=== PATIENT | female | born 1995 | race American Indian/Alaskan Native ===

== ENCOUNTER 2016-08-14 09:32 | Outpatient (CLI) | payer MEDICAID ==
--- NOTE | 2016-08-14 10:48 | Ultrasound Report ---
ULTRASOUND PELVIS COMPLETE - TRANSABDOMINAL AND TRANSVAGINAL: INDICATION: Ovarian cyst. COMPARISON: 03/18/2016. FINDINGS: Transabdominal and transvaginal pelvic sonography performed in this patient with LMP of 07/19/2016 demonstrates a homogenous, 7.5 x 4.4 x 5.1 cm anteverted uterus. Presumed empty gestational sac previously along the endometrium superiorly now not identified in that location. Currently, the endometrial thickness in similar location is approximately 0.8 cm, endovaginal imaging 8. An elongated 1.1 x 0.3 cm cystic focus now seen along the mid to lower endometrium, endovaginal image 10. No pelvic free fluid. Physiologic, 4.1 x 1.6 x 2.7 cm right ovary with a few small follicles. Left ovary estimated at 4.6 x 3.5 x 3.8 cm, much replaced by a 3.4 x 2.9 x 3.4 cm solid mass, endovaginal image 26, though somewhat heterogeneous with eccentric 1.2 cm hyperechoic focus as well. No hypervascularity however identified. Calcification with shadowing in that region seen previously also now not noted. CONCLUSION: 1. Interval sonographic change in cystic uterine/endometrial focus, now seen along the mid to lower endometrial canal and still remains nonspecific for an endometrial cyst. A /gestational sac also not excluded in this setting. Please correlate clinically and with serum beta-hCG values, as appropriate. 2. Complex/solid left ovarian mass again noted with some interval sonographic change, as described. Dermoid again remains in the differential consideration, amongst others, and may also be correlated with any prior/interval cross-sectional imaging if available or with additional imaging, as warranted. Thank you for the opportunity to participate in this patient's care.
== END 2016-08-14 09:33 | disposition home or self-care (01) ==
LOC: US 09:32
PROVIDERS: ATTEND Obstetrics & Gynecology
DX: N83.299 Other ovarian cyst, unspecified side (principal); N83.8 Other noninflammatory disorders of ovary, fallopian tube and broad ligament; N85.4 Malposition of uterus; N85.8 Other specified noninflammatory disorders of uterus
CPT/HCPCS: 76830; 76856

== ENCOUNTER 2017-03-12 08:34 | Emergency (ER) | payer MEDICAID ==
[2017-03-12 09:00] VITALS: BP 136/83
[2017-03-12] MEDS ORDERED: ZOFRAN ODT PO ONE (10:39)
[2017-03-12] MEDS ORDERED: TYLENOL PO ONE (10:39)
--- NOTE | 2017-03-12 10:54 | Emergency Department Report ---
HPI - General Chief Complaint: Back Pain/Injury Time Seen by Provider: 03/12/17 10:01 - [facility] HPI: Pt is a 21-year-old female who presents to the ED complaining of bilateral lower back pain 3 days. Patient also complains of urinary urgency and frequency. Patient states she noticed some blood in her urine about 2 days ago. Patient admits nausea but no vomiting. Patient denies any injury falls or trauma to that. She denies any allergies and denies taking any current medications. Patient also states she experiences spasms type pain after urinating. He denies fevers/chills/vomiting/abdominal pain/chest pain/shortness of breath/ diarrhea. ED Past Medical Hx - Past Medical History Previous Medical History?: Yes Hx Asthma: Yes Additional medical history: heart murmur - Surgical History Past Surgical History?: No - Social History Smoking Status: Current Every Day Smoker Substance Use Type: Alcohol - Medications Home Medications: Home Medications Medication Instructions Recorded Confirmed Last Taken Type Ciprofloxacin HCl [Ciprofloxacin 500 mg PO Q12HR #10 tab 03/12/17 Unknown Rx TAB] Ibuprofen 800 mg PO Q8H #30 tablet 03/12/17 Unknown Rx Ondansetron [Zofran ODT TAB] 8 mg PO Q8HR #20 tab.rapdis 03/12/17 Unknown Rx Phenazopyridine [Pyridium] 200 mg PO BID #10 tab 03/12/17 Unknown Rx ED Review of Systems ROS: Stated complaint: BACK PAIN Other details as noted in HPI Constitutional: denies: chills, fever Eyes: denies: eye pain, eye discharge, vision change ENT: denies: ear pain, throat pain Respiratory: denies: cough, shortness of breath, wheezing Cardiovascular: denies: chest pain, palpitations Endocrine: no symptoms reported Gastrointestinal: denies: abdominal pain, nausea, vomiting, diarrhea Genitourinary: denies: urgency, dysuria, discharge Musculoskeletal: denies: back pain, joint swelling, arthralgia Skin: denies: rash, lesions Neurological: denies: headache, weakness, paresthesias Psychiatric: denies: anxiety, depression Hematological/Lymphatic: denies: easy bleeding, easy bruising Physical Exam - Physical Exam Vital Signs: Vital Signs 03/12/17 08:55 Temperature 98.3 F Pulse Rate 81 Respiratory 20 Rate Blood Pressure 136/83 O2 Sat by Pulse 100 Oximetry Physical Exam: GENERAL: Alert and oriented x3, no apparent distress, Normal Gait, atraumatic. MOUTH:Mouth is well hydrated and without lesions. Tonsils nonerythematous or swollen, Uvula midline, Tongue not elevated. Mucous membranes are moist. Posterior pharynx clear, no exudate or lesions. Patent airways. NECK: Supple. Non edematous, No lymphadenopathy or thyromegaly. LUNGS: Symetrical with respiration, No wheezing, no rales or crackles, CTAB. HEART: S1, S2 present, regular rate and rhythm without murmur, no rubs, no gallops. Non tender to palpation ABDOMEN: No organomegaly was noted,Positive bowel sounds, soft, and non- distended. . Nontender to palpation on all Quadrants, bilat CVA tenderness. BACK: Full range of motion, no spinal tenderness, nontender to palpation. PSYCHIATRIC: Mood is congruent with affect, denies suicidal or homicidal ideations. SKIN: Warm and dry, No lesions, No ulceration or induration present. ED Course Vital Signs 03/12/17 08:55 Temperature 98.3 F Pulse Rate 81 Respiratory 20 Rate Blood Pressure 136/83 O2 Sat by Pulse 100 Oximetry ED Medical Decision Making - Medical Decision Making 21-year-old female present with urinary tract infection ED course: Patient to go home on antibiotics and pain meds. Discussed the patient and take medications as prescribed Discussed the patient to follow-up with primary care physician. Patient is in no acute distress vital signs are normal. Critical care attestation.: If time is entered above; I have spent that time in minutes in the direct care of this critically ill patient, excluding procedure time. ED Disposition Clinical Impression: UTI (urinary tract infection) Qualifiers: Urinary tract infection type: acute cystitis Hematuria presence: with hematuria Qualified Code(s): N30.01 - Acute cystitis with hematuria Disposition: TO HOME OR SELFCARE Is pt being admited?: No Does the pt Need Aspirin: No Condition: Stable Instructions: Urinary Tract Infection in Women (ED), Acute Pyelonephritis (ED) , Flank Pain (ED) Additional Instructions: Please take your medication as prescribed. Follow-up with the primary care physician. If his symptoms get worse or new symptoms arise please return to ED Prescriptions: Ciprofloxacin HCl [Ciprofloxacin TAB] 500 mg PO Q12HR #10 tab Ibuprofen 800 mg PO Q8H #30 tablet Ondansetron [Zofran ODT TAB] 8 mg PO Q8HR #20 tab.rapdis Phenazopyridine [Pyridium] 200 mg PO BID #10 tab Referrals: PRIMARY CARE, [Primary Care Provider] - 3-5 Days [facility] [Outside] - 3-5 Days [facility] [Outside] - 3-5 Days [facility] [Outside] - 3-5 Days Forms: Work/School Release Form Time of Disposition: 13:51
[2017-03-12 11:54] LABS: Bacteria,Urine 1+ /HPF (Negative); Bilirubin,Urine NEG (Negative); Blood,Urine LG (Negative); Ketones,Urine NEG (Negative); Leukocyte Esterase,Urine SM (Negative); Mucus,Urine FEW /HPF; Nitrite,Urine NEG (Negative); Protein,Urine <15 mg/dL mg/dL (Negative); Urobilinogen,Urine < 2.0 mg/dL (<2.0)
[2017-03-12] MEDS ORDERED: ROCEPHIN IM ONE (13:13)
[2017-03-12] MEDS ORDERED: XYLOCAINE 1% MPF 5 mL INFILTRATI ONE (13:13)
== END 2017-03-12 14:18 | disposition home or self-care (01) ==
LOC: ED 08:34
DX: N30.01 Acute cystitis with hematuria (principal); J45.909 Unspecified asthma, uncomplicated; F17.200 Nicotine dependence, unspecified, uncomplicated
CPT/HCPCS: 81001; 81025; 96372; 99283; J0696; Q0162

== ENCOUNTER 2017-10-14 15:39 | Emergency (ER) | payer MEDICAID ==
[2017-10-14] MEDS ORDERED: MOTRIN PO ONE (16:52)
[2017-10-14] MEDS ORDERED: NORCO 5/325 PO ONE (16:52)
--- NOTE | 2017-10-14 16:56 | Emergency Department Report ---
ED Extremity Problem HPI - General Chief complaint: Extremity Injury, Upper Stated complaint: HAND PAIN Time Seen by Provider: 10/14/17 16:47 Source: patient Mode of arrival: Ambulatory Limitations: No Limitations - History of Present Illness Initial comments: Patient is a 22-year-old female who got angry yesterday and punched a wall. Patient is noted pain at the fourth and fifth metacarpals loss of her knuckle. Patient states a throbbing pain as 8 out of 10 in severity. It hurts worse when she tries to move. Patient denies any other injuries at this time. - Related Data Previous Rx's Medication Instructions Recorded Last Taken Type Ciprofloxacin HCl [Ciprofloxacin 500 mg PO Q12HR #10 tab 03/12/17 Unknown Rx TAB] Ibuprofen 800 mg PO Q8H #30 tablet 03/12/17 Unknown Rx Ondansetron [Zofran ODT TAB] 8 mg PO Q8HR #20 tab.rapdis 03/12/17 Unknown Rx Phenazopyridine [Pyridium] 200 mg PO BID #10 tab 03/12/17 Unknown Rx HYDROcodone/APAP 5-325 [[place] 1 each PO Q6HR PRN #15 tablet 10/14/17 Unknown Rx 5/325] Ibuprofen [Motrin] 600 mg PO Q8H PRN #20 tablet 10/14/17 Unknown Rx Allergies Allergy/AdvReac Type Severity Reaction Status Date / Time No Known Allergies Allergy Verified 10/14/17 15:43 ED Review of Systems ROS: Stated complaint: HAND PAIN Other details as noted in HPI Comment: All other systems reviewed and negative ED Past Medical Hx - Past Medical History Hx Asthma: Yes Additional medical history: heart murmur - Surgical History Past Surgical History?: No - Social History Smoking Status: Current Every Day Smoker Substance Use Type: Alcohol - Medications Home Medications: Home Medications Medication Instructions Recorded Confirmed Last Taken Type Ciprofloxacin HCl [Ciprofloxacin 500 mg PO Q12HR #10 tab 03/12/17 Unknown Rx TAB] Ibuprofen 800 mg PO Q8H #30 tablet 03/12/17 Unknown Rx Ondansetron [Zofran ODT TAB] 8 mg PO Q8HR #20 tab.rapdis 03/12/17 Unknown Rx Phenazopyridine [Pyridium] 200 mg PO BID #10 tab 03/12/17 Unknown Rx HYDROcodone/APAP 5-325 [[place] 1 each PO Q6HR PRN #15 tablet 10/14/17 Unknown Rx 5/325] Ibuprofen [Motrin] 600 mg PO Q8H PRN #20 tablet 10/14/17 Unknown Rx ED Physical Exam - General Limitations: No Limitations General appearance: alert, in no apparent distress - Head Head exam: Present: atraumatic, normocephalic - Eye Eye exam: Present: normal appearance - ENT ENT exam: Present: mucous membranes moist - Neck Neck exam: Present: normal inspection - Respiratory Respiratory exam: Present: normal lung sounds bilaterally - Cardiovascular Cardiovascular Exam: Absent: systolic murmur, diastolic murmur, rubs, gallop - GI/Abdominal GI/Abdominal exam: Present: soft - Extremities Exam Extremities exam: Present: normal inspection, tenderness (patient has tenderness and swelling to the area of the hand on the right overlying the fourth and fifth metacarpal there is loss of the contour of the knuckles.) - Back Exam Back exam: Present: normal inspection - Neurological Exam Neurological exam: Present: alert, oriented X3 - Psychiatric Psychiatric exam: Present: normal affect, normal mood - Skin Skin exam: Present: warm, dry, intact, normal color. Absent: rash ED Course Vital Signs 10/14/17 15:43 Temperature 98.5 F Pulse Rate 84 Respiratory 16 Rate Blood Pressure 125/91 O2 Sat by Pulse 99 Oximetry ED Medical Decision Making - Medical Decision Making Patient was placed in ulnar gutter splint and will be referred to [email or web address] Critical care attestation.: If time is entered above; I have spent that time in minutes in the direct care of this critically ill patient, excluding procedure time. ED Disposition Clinical Impression: Boxers fracture Qualifiers: Encounter type: initial encounter Fracture type: closed Qualified Code(s): S62.339A - Displaced fracture of neck of unspecified metacarpal bone, initial encounter for closed fracture Disposition: - TO HOME OR SELFCARE Is pt being admited?: No Does the pt Need Aspirin: No Condition: Stable Instructions: Boxer Fracture (ED) Referrals: HANK KERN MD [Staff Physician] - 3-5 Days
[2017-10-14 17:19] VITALS: BP 109/80
--- NOTE | 2017-10-14 19:06 | XRay Report ---
FINAL REPORT EXAM: XR HAND 3+V RT HISTORY: injury/RT HAND PAIN COMPARISON: None available. FINDINGS: Three views of the right hand obtained. There is a transverse fracture of the mid 5th metacarpal body with volar angulation of the distal fracture segment. Remaining bony structures are intact. There is expansile lucent lesion within the proximal 1st phalanx measuring 1.7 x 1.1 centimeters. No associated fracture. This may reflect a benign aneurysmal bone cyst or focus of fibrous dysplasia. Joint spaces are preserved. IMPRESSION: Fifth metacarpal fracture. 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 Followup exam in 6 months could be performed to ensure stability.
== END 2017-10-14 17:19 | disposition home or self-care (01) ==
LOC: ED 15:39
DX: S62.396A Other fracture of fifth metacarpal bone, right hand, initial encounter for closed fracture (principal); J45.909 Unspecified asthma, uncomplicated; F17.200 Nicotine dependence, unspecified, uncomplicated; X58.XXXA Exposure to other specified factors, initial encounter; Y93.89 Activity, other specified; Y99.8 Other external cause status; Y92.89 Other specified places as the place of occurrence of the external cause

== ENCOUNTER 2018-10-26 23:04 | Inpatient (IN) | payer OTHER ==
[2018-10-26] MEDS ORDERED: PITOCin/NS 20 UNIT/1000ML DRIP 20,000 MILLIUNITS/1,000 ML BAG IV ONE (23:30)
[2018-10-26] MEDS ORDERED: LACTATED RINGERS 1,000 ML ONE (23:30)
[2018-10-27] MEDS: PITOCin/NS 20 UNIT/1000ML DRIP 20 UNITS/1,000 ML BAG IV SCH ×2 (00:25→02:55)
--- NOTE | 2018-10-27 00:40 | History and Physical Report ---
History of Present Illness Date of examination: 10/27/18 Date of admission: 10/26/18 23:18 Chief complaint: SROM History of present illness: 23y/o @ 39+1 weeks presents in active labor with advanced cervical dilation and SROM. The patient's course was complicated by STD exposure and a left dermoid cyst. GBS negative Past History Past Medical History: no pertinent history Past Surgical History: no surgical history Social history: single - Obstetrical History Expected Date of Delivery: 11/02/18 Actual Gestation: 39 Week(s) 1 Day(s) : 2 Para: 0 Hx # Term Pregnancies: 0 Number of Pregnancies: 0 Spontaneous Abortions: 1 Induced : 0 Number of Living Children: 0 Medications and Allergies Allergies Allergy/AdvReac Type Severity Reaction Status Date / Time No Known Allergies Allergy Verified 10/14/17 15:43 Home Medications Medication Instructions Recorded Confirmed Last Taken Type Ciprofloxacin HCl [Ciprofloxacin 500 mg PO Q12HR #10 tab 03/12/17 Unknown Rx TAB] Ibuprofen 800 mg PO Q8H #30 tablet 03/12/17 Unknown Rx Ondansetron [Zofran ODT TAB] 8 mg PO Q8HR #20 tab.rapdis 03/12/17 Unknown Rx Phenazopyridine [Pyridium] 200 mg PO BID #10 tab 03/12/17 Unknown Rx HYDROcodone/APAP 5-325 [[place] 1 each PO Q6HR PRN #15 tablet 10/14/17 Unknown Rx 5/325] Ibuprofen [Motrin] 600 mg PO Q8H PRN #20 tablet 10/14/17 Unknown Rx Review of Systems All systems: negative Genitourinary: leakage of fluid, pelvic pain, contractions - Vital Signs Vital signs: Vital Signs Pulse BP 83 217/88 10/27/18 00:10 10/27/18 00:10 Temp Pulse Resp BP Pulse Ox 85 94/54 10/27/18 00:27 10/27/18 00:27 - Physical Exam Breasts: Positive: deferred Cardiovascular: Regular rate Lungs: Positive: Clear to auscultation Abdomen: Positive: normal appearance Results All other labs normal. Assessment and Plan - Patient Problems (1) Spontaneous rupture of membranes Current Visit: Yes Status: Acute Plan to address problem: admit to L&D (2) Active labor at term Current Visit: Yes Status: Acute
[2018-10-27] MEDS ORDERED: MINERAL OIL PO PRN (00:45)
[2018-10-27] MEDS ORDERED: XYLOCAINE 2% INFILTRATI ONE (00:45)
--- NOTE | 2018-10-27 00:45 | Procedure Note ---
OB Delivery Note - Delivery Date of Delivery: 10/27/18 Surgeon: SKY EDWARD Estimated blood loss: 100cc - Vaginal Delivery presentation: vertex Delivery position: OA Intrapartum events: none Delivery monitor: external FHT, external uterine Route of delivery: Delivery placenta: spontaneous Delivery cord: nuchal cord, 3 umbilical vessels Episiotomy: none Delivery laceration: none Anesthesia: none Delivery comments: Patient progressed to C/C/+1 and pushed to deliver a liveborn male with apgars of 8/9 and weight 7lbs 4oz. After delivery of the head, a nuchal cord had to be surgically reduced. After delivery of the , the infant was placed on the patient's abdomen. The placenta delivered spontaneously intact with a 3VC. No lacerations were noted. EBL 100ml. - Infant A at 1 minute: 8 at 5 minutes: 9 Infant Gender: Male (weight 7lbs 4oz.)
[2018-10-27] MEDS ORDERED: TUCKS PAD TP PRN (00:48)
[2018-10-27] MEDS ORDERED: PHENERGAN PO PRN (00:48)
[2018-10-27] MEDS ORDERED: DULCOLAX PR PRN (00:48)
[2018-10-27] MEDS ORDERED: ZOFRAN IV PRN (00:48)
[2018-10-27] MEDS ORDERED: BENADRYL PO PRN (00:48)
[2018-10-27] MEDS ORDERED: MILK OF MAGNESIA PO PRN (00:48)
[2018-10-27] MEDS ORDERED: LANSINOH TP PRN (00:48)
[2018-10-27] MEDS ORDERED: PHENERGAN PR PRN (00:48)
[2018-10-27] MEDS ORDERED: TYLENOL PO PRN (00:48)
[2018-10-27] MEDS ORDERED: SODIUM CHLORIDE FLUSH SYRINGE 10 ML IV PRN (01:00)
[2018-10-27] MEDS ORDERED: LACTATED RINGERS 1,000 ML IV SCH (01:00)
[2018-10-27 01:23] LABS: Hematocrit 40.8 % (30.3-42.9); Mean Corpuscular HGB Conc 34 % (30-34); Mean Corpuscular Volume 100 fl (79-97); Platelet Count 146 K/mm3 (140-440); Red Blood Count 4.08 M/mm3 (3.65-5.03)
[2018-10-27] MEDS: IBUPROFEN PO SCH ×4 (02:14→19:04)
--- NOTE | 2018-10-27 12:03 | Progress Note ---
Assessment and Plan - Patient Problems (1) Spontaneous rupture of membranes Current Visit: Yes Status: Acute Plan to address problem: patient doing well discharge once is discharged (2) Active labor at term Current Visit: Yes Status: Acute Subjective - Subjective Date of service: 10/27/18 Interval history: Patient well. Lochia improved. Patient reports: appetite normal, voiding normally, pain well controlled : doing well Objective - Vital Signs Latest vital signs: Vital Signs Temp Pulse Resp BP BP Pulse Ox 10/27/18 07:06 98.1 F 77 18 105/57 10/27/18 06:04 20 10/27/18 04:34 98.1 F 79 20 106/56 96 10/27/18 02:11 80 117/73 10/27/18 01:56 71 112/64 10/27/18 01:41 71 112/64 10/27/18 01:26 72 121/63 10/27/18 01:11 79 113/63 10/27/18 00:56 84 122/68 10/27/18 00:53 98.1 F 18 10/27/18 00:42 75 124/66 10/27/18 00:27 85 94/54 10/27/18 00:10 83 217/88 Intake and Output 10/26/18 10/27/18 10/27/18 22:59 06:59 14:59 Intake Total 792.5 480 Output Total 850 Balance -57.5 480 Intake: IV 312.5 PITOCin/NS 20 UNIT/1000ML 312.5 DRIP 20 units In 1,000 ml @ 125 mls/hr IV DIRECT SANIYA Rx#:[id number] Oral 120 480 Intake, Free Water 360 Output: Urine 850 Void 850 Other: Total, Intake Amount 120 480 Total, Output Amount 350 Weight 68.946 kg Estimated Blood Loss 100 - Exam Abdomen: Present: normal appearance, soft - Labs Labs: Abnormal lab results 10/27/18 Range/Units Unknown WBC 11.8 H (4.5-11.0) K/mm3 MCV 100 H (79-97) fl MCH 34 H (28-32) pg RDW 13.0 L (13.2-15.2) %
--- NOTE | 2018-10-27 12:04 | Discharge Summary ---
Providers - Providers Date of Admission: 10/26/18 23:18 Date of discharge: 10/28/18 Attending physician: SKY EDWARD Primary care physician: SKY EDWARD Hospitalization Reason for admission: active labor Delivery: Discharge diagnosis: IUP at term delivered Hospital course: Patient admitted in active labor. . uneventful Condition at discharge: Good Disposition: DC-01 TO HOME OR SELFCARE - Discharge Diagnoses (1) Spontaneous rupture of membranes Status: Acute (2) Active labor at term Status: Acute Plan - Discharge Medications Prescriptions: Ibuprofen [Motrin] 800 mg PO Q8HR PRN #60 tablet PRN Reason: Pain, Mild (1-3) HYDROcodone/APAP 5-325 [[place] 5/325] 1 each PO Q6HR PRN #20 tablet PRN Reason: Pain - Provider Discharge Summary Activity: no sex for 6 weeks, no heavy lifting 4 weeks, no strenuous exercise Diet: routine Instructions: routine Additional instructions: [] Smoking cessation referral if applicable(refer to patient education folder for contact #) [] Refer to [facility] Booklet Call your doctor immediately for: * Fever > 100.5 * Heavy vaginal bleeding ( >1 pad per hour) * Severe persistent headache * Shortness of breath * Reddened, hot, painful area to leg or breast * schedule visit in 4 weeks - Follow up plan
[2018-10-27 13:37] LABS: Hemoglobin 12.4 gm/dl (10.1-14.3)
[2018-10-27] MEDS: NORCO 5/325 PO PRN (18:40)
[2018-10-28] MEDS: IBUPROFEN PO SCH ×3 (00:30→12:14)
[2018-10-28] MEDS: NORCO 5/325 PO PRN (05:58)
[2018-10-28] MEDS ORDERED: BOOSTRIX IM ONE (06:00)
[2018-10-28 08:56] VITALS: BP 91/51
== END 2018-10-28 16:25 | disposition home or self-care (01) | DRG 775 ==
LOC: TRG 23:04 → LD 23:18 → OB 10-27 03:44
PROVIDERS: ADMIT Obstetrics & Gynecology; ATTEND Obstetrics & Gynecology
PROC: 10E0XZZ Delivery of Products of Conception, External Approach (ICD-10-PCS; principal; 2018-10-27)
DX: O69.1XX0 Labor and delivery complicated by cord around neck, with compression, not applicable or unspecified (principal); Z3A.39 39 weeks gestation of pregnancy; Z37.0 Single live birth; Z79.899 Other long term (current) drug therapy
CPT/HCPCS: 36415; 85014; 85018; 85027; 86592; 86706; 86850; 86900; 86901; 90471; 90715; G0378; A6250; J2590; J7120

== ENCOUNTER 2021-03-07 23:20 | Emergency (ER) | payer SELFPAY ==
[2021-03-08] MEDS ORDERED: MORPHINE 4 MG/1 ML INJ IV ONE (02:27)
[2021-03-08] MEDS ORDERED: LORazepam 2 MG/ML VIAL IV ONE (02:27)
[2021-03-08] MEDS ORDERED: FAMOTIDINE 20 MG/2 ML INJ IV ONE (02:27)
[2021-03-08] MEDS ORDERED: SODIUM CHLORIDE 0.9% 1000 ML 1,000 ML IV ONE (02:27)
[2021-03-08] MEDS ORDERED: ONDANSETRON 4 MG/2 ML INJ IV ONE (02:27)
[2021-03-08 02:49] LABS: Hematocrit 41.8 % (30.3-42.9); Hemoglobin 13.1 gm/dl (10.1-14.3); Mean Corpuscular HGB Conc 32 % (30-34); Mean Corpuscular Volume 96 fl (79-97); Platelet Count 237 K/mm3 (140-440); Red Blood Count 4.35 M/mm3 (3.65-5.03); Red Cell Distribution Width 14.1 % (13.2-15.2)
[2021-03-08 03:08] LABS: Alanine Aminotransferase 13 units/L (7-56); Albumin 4.4 g/dL (3.9-5); Blood Urea Nitrogen 7 mg/dL (7-17); Calcium 9.4 mg/dL (8.4-10.2); Hemolysis Index 11
[2021-03-08 03:19] LABS: BUN/Creatinine Ratio 10
[2021-03-08 03:39] LABS: Total Cells Counted 100
[2021-03-08 03:40] LABS: RBC Morphology Normal
[2021-03-08 05:07] LABS: Bacteria,Urine 1+ /HPF (Negative); Bilirubin,Urine NEG (Negative); Blood,Urine NEG (Negative); Color,Urine Yellow (Yellow); Mucus,Urine 2+ /HPF; Protein,Urine <15 mg/dL mg/dL (Negative)
--- NOTE | 2021-03-08 05:59 | Emergency Department Report ---
ED Female HPI - General Chief complaint: Abdominal Pain Stated complaint: ABD PAIN Source: patient Mode of arrival: Ambulatory Limitations: No Limitations - History of Present Illness Initial comments: Patient is a A1 25-year-old -[place] female with a history of PTSD, asthma, anxiety and depression who presents to the ED with complaint of acute onset persistent suprapubic pain that radiates to the left lower quadrant area with nausea and vomiting for the last 1 week, worse in the last 2 days. Patient states that the pain has been constant and persistent since the onset. Patient also complains of urinary frequency and urgency. Patient states that her LMP was December, and that she was not concerned because she usually has irregular menstrual cycle. Patient denies vaginal bleeding, vaginal discharge, dizziness, syncope, low back pain, dysuria, chest pain, sore throat, diarrhea, dyspareunia, fever, chills, cough or headache. MD Complaint: pelvic pain, other (Nausea and vomiting) -: Sudden, week(s) (1) Location: suprapubic, LLQ Radiation: suprapubic, LLQ Severity: severe Severity scale (0 -10): 8 Quality: cramping, sharp Consistency: constant Improves with: none Worsens with: movement Are you Now?: No (Unknown) Associated Symptoms: denies other symptoms, abdominal pain (Suprapubic pain radiating to the left lower quadrant area), nausea/vomiting. denies: vaginal discharge, vaginal bleeding, fever/chills, headaches, loss of appetite, dysuria, hematuria, rash, seizure, shortness of breath, syncope, weakness - Related Data Sexually active: Yes : 2 Para: 1 A: 1 Home Medications Medication Instructions Recorded Confirmed Last Taken No.144/Folic Acid [[facility] 400 mcg PO BID 10/27/18 10/27/18 10/26/18 Gummies] Previous Rx's Medication Instructions Recorded Last Taken Type HYDROcodone/APAP 5-325 [[place] 1 each PO Q6HR PRN #20 tablet 10/27/18 Unknown Rx 5/325] Ibuprofen [Motrin] 800 mg PO Q8HR PRN #60 tablet 10/27/18 Unknown Rx Acetaminophen [Tylenol] 500 mg PO Q6HR PRN #30 tablet 03/08/21 Unknown Rx Nitrofurantoin Cid[place]/M-Cryst 100 mg PO Q12HR #14 capsule 03/08/21 Unknown Rx [Macrobid CAP] Promethazine [Phenergan] 25 mg PO Q6HR PRN #30 tab 03/08/21 Unknown Rx Allergies Allergy/AdvReac Type Severity Reaction Status Date / Time Penicillins AdvReac Hives Verified 03/08/21 01:35 ED Review of Systems ROS: Stated complaint: ABD PAIN Other details as noted in HPI Constitutional: denies: chills, fever Eyes: denies: eye pain, eye discharge, vision change ENT: denies: ear pain, throat pain Respiratory: denies: cough, shortness of breath, wheezing Cardiovascular: denies: chest pain, palpitations Endocrine: no symptoms reported Gastrointestinal: abdominal pain (Suprapubic pain that radiates to the left lower quadrant area), nausea, vomiting. denies: diarrhea, constipation, hematemesis, hematochezia Genitourinary: urgency, dysuria, frequency. denies: discharge, abnormal menses, dyspareunia Musculoskeletal: denies: back pain, joint swelling, arthralgia Skin: denies: rash, lesions Neurological: denies: headache, weakness, paresthesias Psychiatric: denies: anxiety, depression Hematological/Lymphatic: denies: easy bleeding, easy bruising ED Past Medical Hx - Past Medical History Hx Hypertension: No Hx Congestive Heart Failure: No Hx Diabetes: No Hx Deep Vein Thrombosis: No Hx Renal Disease: No Hx Sickle Cell Disease: No Hx Seizures: No Hx Psychiatric Treatment: Yes (depression, ptsd, anxiety) Hx Asthma: Yes (last attack 2013) Hx COPD: No Additional medical history: heart murmur - Surgical History Hx Appendectomy: Yes Additional Surgical History: ovarian surgery - Social History Smoking Status: Never Smoker - Medications Home Medications: Home Medications Medication Instructions Recorded Confirmed Last Taken Type HYDROcodone/APAP 5-325 [[place] 1 each PO Q6HR PRN #20 tablet 10/27/18 Unknown Rx 5/325] Ibuprofen [Motrin] 800 mg PO Q8HR PRN #60 tablet 10/27/18 Unknown Rx No.144/Folic Acid [[facility] 400 mcg PO BID 10/27/18 10/27/18 10/26/18 History Gummies] Acetaminophen [Tylenol] 500 mg PO Q6HR PRN #30 tablet 03/08/21 Unknown Rx Nitrofurantoin C[place]/M-Cryst 100 mg PO Q12HR #14 capsule 03/08/21 Unknown Rx [Macrobid CAP] Promethazine [Phenergan] 25 mg PO Q6HR PRN #30 tab 03/08/21 Unknown Rx ED Physical Exam - General Limitations: No Limitations General appearance: alert, in no apparent distress - Head Head exam: Present: atraumatic, normocephalic, normal inspection - Eye Eye exam: Present: normal appearance, PERRL, EOMI Pupils: Present: normal accommodation - ENT ENT exam: Present: normal exam, normal orophraynx, mucous membranes moist, TM's normal bilaterally, normal external ear exam - Neck Neck exam: Present: normal inspection, full ROM - Respiratory Respiratory exam: Present: normal lung sounds bilaterally. Absent: respiratory distress - Cardiovascular Cardiovascular Exam: Present: regular rate, normal rhythm, normal heart sounds. Absent: systolic murmur, diastolic murmur, rubs, gallop - GI/Abdominal GI/Abdominal exam: Present: soft, tenderness (Palpable suprapubic and left lower quadrant tenderness), normal bowel sounds. Absent: guarding, rebound, hyperactive bowel sounds, hypoactive bowel sounds, organomegaly, mass - Bi-manual exam: Present: other (Pelvic exam deferred at this time) - Extremities Exam Extremities exam: Present: normal inspection, full ROM, normal capillary refill. Absent: tenderness, pedal edema, joint swelling, calf tenderness - Back Exam Back exam: Present: normal inspection, full ROM. Absent: tenderness, CVA tenderness (R), CVA tenderness (L), muscle spasm, paraspinal tenderness, vertebral tenderness - Neurological Exam Neurological exam: Present: alert, oriented X3, CN II-XII intact, normal gait, reflexes normal - Psychiatric Psychiatric exam: Present: normal affect, normal mood - Skin Skin exam: Present: warm, dry, intact, normal color. Absent: rash ED Course Vital Signs 03/07/21 23:23 Temperature 99.5 F ED Medical Decision Making - Lab Data Result diagrams: 03/08/21 02:36 03/08/21 02:36 - Radiology Data Radiology results: report reviewed, image reviewed [facility] [address] [place] [address] Ultrasound Report Signed Patient: SUZANNE PINK MR#: [id number] : 1995 Acct:[id number] Age/Sex: 25 / F ADM Date: 03/07/21 Loc: ED Attending Dr: Ordering Physician: MARLENA CERDA Date of Service: 03/08/21 Procedure(s): US OB <= 14 weeks fetus Accession Number(s): [id number] cc: MARLENA CERDA ULTRASOUND PELVIS INDICATION: Pelvic pain - positive . TECHNIQUE: Transabdominal. Duplex Color Doppler used: Yes. COMPARISON: None available FINDINGS: Uterus: Present. Size: 8.8 x 6.5 x 7.4 cm. Endometrial complex: Early intrauterine dated 6 weeks 3 days. heart tones are 100 bpm. Mass lesions: None. Additional findings: None. Right Ovary -- Normal. Blood flow: Normal. Cyst or mass: None. Left Ovary--nonvisualized. Urinary Bladder: Normal. Free Fluid: None. Additional Findings: None. IMPRESSION: 1. Early viable intrauterine dated 6 weeks 3 days. 2. Left ovary nonvisualized. No adnexal abnormality. Signer Name: Otto Strauss MD Signed: 03/08/2021 5:55 AM Workstation Name: [id number] Transcribed By: ES Dictated By: Otto Strauss MD Electronically Authenticated By: Otto Strauss MD Signed Date/Time: 03/08/21554 DD/ 2 TD/TT: - Medical Decision Making This is a A1 25-year-old -[place] female with a history of PTSD, asthma, anxiety and depression who presents to the ED with complaint of acute onset persistent suprapubic pain that radiates to the left lower quadrant area with nausea and vomiting for the last 1 week, worse in the last 2 days. Patient states that the pain has been constant and persistent since the onset. Patient also complains of urinary frequency and urgency. Patient states that her LMP was December, and that she was not concerned because she usually has irregular menstrual cycle. In the ED, patient is alert and oriented x3 and is not in any distress. Patient however appears to be in significant pain. Patient was treated for pain in the ED and also received normal saline 1 L IV bolus x1 as well as antiemetics. Lab test results were reviewed and showed acute leukocytosis of 12,300, mild hyponatremia 133 mmol/L, positive quali tative serum hCG test and hCG quant of 27 450, and urinalysis showed significant urinary tract infection. Transvaginal ultrasound showed. early viable intrauterine dated 6 weeks 3 days, and left ovary nonvisualized. No adnexal abnormality. On reevaluation, patient's pain is well controlled medication. Patient will discharge home on pain medications and oral antibiotics as well as antiemetics and was advised to follow-up with her [facility] physician in 5 to 7 days for reevaluation or return to the ED immediately if symptoms get worse. - Differential Diagnosis Ectopic ; UTI; diverticulitis; ovarian cyst; PID Critical care attestation.: If time is entered above; I have spent that time in minutes in the direct care of this critically ill patient, excluding procedure time. ED Disposition Clinical Impression: Acute suprapubic pain, Acute urinary tract infection, Abdominal pain during in first trimester, Early stage of Disposition: 01 HOME / SELF CARE / HOMELESS Is pt being admited?: No Does the pt Need Aspirin: No Condition: Stable Instructions: Abdominal Pain (ED), Abdominal Pain, Adult, [id number], First Trimester of , [id number], Urinary Tract Infection, Adult, [id number] Additional Instructions: Lab test results were positive for and the hCG quant was over 27,000. Urinalysis showed significant urinary tract infection. Transvaginal ultrasound showed Early viable intrauterine dated 6 weeks 3 days. Left ovary nonvisualized. No adnexal abnormality. Therefore maintain it a complete pelvic rest, take Tylenol as needed for pain and follow-up with your [facility] physician in 5 to 7 days for reevaluation. Return to the ED immediately if symptoms get worse. Prescriptions: Acetaminophen [Tylenol] 500 mg PO Q6HR PRN #30 tablet PRN Reason: Pain , Severe (7-10) Nitrofurantoin Cidra/M-Cryst [Macrobid CAP] 100 mg PO Q12HR #14 capsule Promethazine [Phenergan] 25 mg PO Q6HR PRN #30 tab PRN Reason: Nausea Referrals: AMANDA TEE MD [Staff Physician] - 3-5 Days Forms: Work/School Release Form(ED) Time of Disposition: 06:02 Print Language: VIET[place]
== END 2021-03-08 06:41 | disposition home or self-care (01) ==
LOC: ED 23:20
DX: O23.41 Unspecified infection of urinary tract in pregnancy, first trimester (principal); N39.0 Urinary tract infection, site not specified; Z3A.01 Less than 8 weeks gestation of pregnancy
CPT/HCPCS: 36415; 76801; 80053; 81001; 83690; 84702; 84703; 85007; 85025; 87086; 96361; 96374; 96375; 99284; J2060; J2270; J2405; J3490; J7030; Q0162